=== PATIENT | male | born 1970 | race Caucasian/White ===

== ENCOUNTER 2020-08-02 12:01 | Inpatient (IN) ==
[2020-08-02] MEDS ORDERED: Isovue-370 500 ML BOTTLE IVP ONE (12:02)
[2020-08-02] MEDS ORDERED: 0.9 % Sodium Chloride 1,000 ML IVC SCH (12:15)
[2020-08-02] MEDS: Piperacillin/Tazobactam 3.375 GM in 0.9 % Sodium Chloride Mini Bag 100 ML IVPB SCH ×2 (15:44→21:57)
[2020-08-02 16:12] LABS: Basophils # 0.1 K/mcL (0.0-0.2); Basophils % 0.7 %; Eosinophils # 0.2 K/mcL (0.0-0.6); Eosinophils % 1.7 %; Hematocrit 51.1 % (37.5-50.1); Hemoglobin 16.7 g/dL (12.9-16.9); Immature Granulocytes % 0.4 % (0-4); Lymphocytes # 2.4 K/mcL (0.6-4.6); Lymphocytes % 21.6 %; Mean Corpuscular HGB Conc 32.7 g/dL (31.6-35.5); Mean Corpuscular Hemoglobin 29.8 pg (28.0-33.3); Mean Corpuscular Volume 91.1 fL (83.0-100.0); Monocytes # 0.8 K/mcL (0.0-1.3); Monocytes % 6.8 %; Neutrophils # 7.7 K/mcL (1.6-8.9); Platelet Count 345 K/mcL (140-400); Red Blood Count 5.61 M/mcL (4.19-5.50); Red Cell Distribution Width 13.1 % (11.5-14.5); Segmented Neutrophils % 68.8 %; White Blood Count 11.2 K/mcL (4.3-11.1)
[2020-08-02 16:16] LABS: Prothrombin Time 11.6 Seconds (9.4-12.1)
[2020-08-02 16:32] LABS: BUN/Creatinine Ratio 11 (6-26); Blood Urea Nitrogen 9 mg/dL (6-20); Calcium 9.8 mg/dL (8.6-10.3); Carbon Dioxide 27 mEq/L (23-29); Chloride 101 mEq/L (98-107); Glucose 106 mg/dL (70-105); Osmolality,Calculated 285 (280-300); Phosphorous 3.4 mg/dL (2.7-4.5); Potassium 3.7 mEq/L (3.5-5.1); Sodium 138 mEq/L (136-145); eGFR For African Americans > 60 (> 60); eGFR For Non-African Americans > 60 (> 60)
[2020-08-02 16:53] LABS: Influenza A PCR Negative (Negative); Influenza B PCR Negative (Negative); Resp. Syncytial Virus PCR Negative (Negative)
[2020-08-02] MEDS ORDERED: Isovue-370 500 ML BOTTLE PO ONE (17:04)
[2020-08-02 17:30] LABS: SARS-CoV-2 by PCR (In House) Negative (Negative)
[2020-08-02] MEDS: Pantoprazole 40 MG VIAL IVP SCH (18:17)
[2020-08-03] MEDS: Piperacillin/Tazobactam 3.375 GM in 0.9 % Sodium Chloride Mini Bag 100 ML IVPB SCH ×2 (05:48→12:50)
[2020-08-03] MEDS ORDERED: CefOXitin 1,000 MG VIAL ONE (07:10)
[2020-08-03] MEDS ORDERED: *HR* HYDROmorphone PF 0.5 MG/0.5 ML SYRINGE IVP PRN (07:50)
[2020-08-03] MEDS ORDERED: Ondansetron 4 MG/2 ML VIAL IVP PRN (07:50)
[2020-08-03] MEDS ORDERED: *HR* OxyCODONE Immed Rel 5 MG TABLET PO PRN (07:50)
[2020-08-03] MEDS ORDERED: Ondansetron 4 MG/2 ML VIAL ONE (08:21)
[2020-08-03] MEDS ORDERED: Dexamethasone 4 MG/ML VIAL ONE (08:21)
[2020-08-03] MEDS ORDERED: *HR* Propofol 200 MG/20 ML VIAL IVP ONE (08:41)
[2020-08-03] MEDS ORDERED: Lidocaine -MPF 2% 2 ML VIAL ONE (08:41)
[2020-08-03] MEDS ORDERED: *HR* FentaNYL (PF) 100 MCG/2 ML VIAL ONE (08:41)
[2020-08-03 11:40] VITALS: BP 110/65
[2020-08-03] MEDS: Pantoprazole 40 MG VIAL IVP SCH (12:49)
[2020-08-03] MEDS ORDERED: 0.9 % Sodium Chloride 1,000 ML IVC SCH (13:09)
[2020-08-03] MEDS ORDERED: Piperacillin/Tazobactam 3.375 GM in 0.9 % Sodium Chloride Mini Bag 100 ML IVPB SCH (20:03)
[2020-08-04] MEDS ORDERED: Pantoprazole 40 MG VIAL IVP SCH (09:00)
== END 2020-08-03 17:42 | disposition home or self-care (01) | DRG 346 ==
LOC: 2ANU
PROVIDERS: ADMIT Surgery; ATTEND Surgery